=== PATIENT | male | born 1965 | race Caucasian/White ===

== ENCOUNTER → 2017-06-07 16:24 | Outpatient (CLI) | payer BC, SELFPAY ==
[2017-06-07 18:28] LABS: AST(SGOT) 13 U/L (15-37); Alanine Aminotransfer ALT/SGPT 30 U/L (16-61); Anion Gap 8 (5-15); BUN 16 mg/dL (7-18); BUN/Creat Ratio 19.4 RATIO (10-20); Calcium,Total 8.6 mg/dL (8.5-10.1); Chloride 106 mmol/L (98-107); Cholesterol 156 mg/dL (200); Creatinine, Serum 0.83 mg/dL (0.70-1.30); EST Glomerular Filtration Rate 104 mL/min (>60); Est Glom Filt Rate - Afr Amer 126 mL/min (>60); Glucose 79 mg/dL (74-106); High Density Lipoprotein 32 mg/dL; PSA,Total - Annual Screen 0.52 ng/mL (0.00-4.00); Potassium 3.7 mmol/L (3.5-5.1); Sodium Level 140 mmol/L (136-145); Triglycerides 173 mg/dL; Very Low Density Lipoprotein 35 mg/dL (5-40)
== END ==
PROVIDERS: Family Provider Family Medicine; PCP Family Medicine; Visit Provider Family Medicine
DX: Z00.00 Encounter for general adult medical examination without abnormal findings (principal); I10 Essential (primary) hypertension; E78.5 Hyperlipidemia, unspecified; Z12.5 Encounter for screening for malignant neoplasm of prostate
CPT/HCPCS: 36415; 80048; 80061; 84153; 84450; 84460; G0103

== ENCOUNTER → 2017-07-14 16:29 | Outpatient (CLI) | payer BC, SELFPAY ==
--- NOTE | 2017-07-14 | COLBX_PTH ---
PATIENT: MAR CLEMENS LOC: [facility] U#:[id number] AGE/SX: 59/M ROOM: RE07/14/[address]: Dr. Angel Nguyen MD : 1965 BED: DIS: SPEC #: [id number] RECD: 07/14/17 11:27 STATUS: VALENTINA GARCIASteve #: [id number] GERARD: 07/14/17 00:[address]: Angel Nguyen DEPT: SURGICAL PATHOLOGY RECD BY: Shane Wiley ENTERED: 07/20/17 11:28 SP TYPE: COLON BX OTHR DR: Dr. Belia Hernandez MD [facility] Tissues: Sigmoid colon biopsy Procedures: Surgery Specimen Level IV HEADER OPERATION: Colonoscopy with biopsy PRE-OP DIAGNOSIS: Screening / polyp TISSUE SUBMITTED: Sigmoid polyp, rule out adenoma MICROSCOPIC DIAGNOSIS Sigmoid colon polyp, biopsy: Polypoid fragments of benign colonic mucosa. See comment. AM:stephanie 07/21/17 COMMENT Neither hyperplastic nor adenomatous change is seen. Benign appearing lymphoid aggregates are noted. Clinical correlation is suggested. MICROSCOPIC DESCRIPTION Slides are reviewed. GROSS DESCRIPTION Received in fixative is one container labeled with the patient's name and designated sigmoid colon biopsy. The specimen consists of multiple irregular fragments of light davey soft tissue that in aggregate measure 0.6 x 0.3 x 0.1 cm. The specimen is totally submitted in one cassette. / SJ:stephanie 07/17/17 TC:5 CPT: 84134
== END ==
PROVIDERS: Family Provider Family Medicine; PCP Family Medicine; Visit Provider Internal Medicine Gastroenterology
DX: Z12.11 Encounter for screening for malignant neoplasm of colon (principal); K63.5 Polyp of colon
CPT/HCPCS: 88305

== ENCOUNTER → 2018-11-12 | Outpatient (CLI) | payer BC, SELFPAY ==
[2018-11-12 12:53] LABS: Anion Gap 6 (5-15); BUN 11 mg/dL (7-18); BUN/Creat Ratio 12.4 RATIO (10-20); Calcium,Total 8.9 mg/dL (8.5-10.1); Chloride 108 mmol/L (98-107); Cholesterol 159 mg/dL (200); Creatinine, Serum 0.89 mg/dL (0.70-1.30); EST Glomerular Filtration Rate 95 mL/min (>60); Est Glom Filt Rate - Afr Amer 115 mL/min (>60); Glucose 104 mg/dL (74-106); High Density Lipoprotein 38 mg/dL; Potassium 4.1 mmol/L (3.5-5.1); Sodium Level 141 mmol/L (136-145); Triglycerides 139 mg/dL; Very Low Density Lipoprotein 28 mg/dL (5-40)
== END | disposition home or self-care (01) ==
LOC: MFPLAB 09:51
PROVIDERS: Family Provider Family Medicine; PCP Family Medicine; Referring Provider Family Medicine; Visit Provider Family Medicine
DX: I10 Essential (primary) hypertension (principal); S39.012A Strain of muscle, fascia and tendon of lower back, initial encounter
CPT/HCPCS: 36415; 80048; 80061; 82306

== ENCOUNTER → 2019-09-06 | Outpatient (CLI) | payer BC, SELFPAY ==
[2019-09-06 17:49] LABS: AST(SGOT) 13 U/L (15-37); Alanine Aminotransfer ALT/SGPT 38 U/L (16-61); Anion Gap 5 (5-15); BUN 19 mg/dL (7-18); BUN/Creat Ratio 20.2 RATIO (10-20); Calcium,Total 8.8 mg/dL (8.5-10.1); Chloride 106 mmol/L (98-107); Cholesterol 184 mg/dL (200); Creatinine, Serum 0.94 mg/dL (0.70-1.30); EST Glomerular Filtration Rate 89 mL/min (>60); Est Glom Filt Rate - Afr Amer 107 mL/min (>60); Glucose 85 mg/dL (74-106); High Density Lipoprotein 35 mg/dL; PSA,Total - Annual Screen 0.75 ng/mL (0.00-4.00); Potassium 4.4 mmol/L (3.5-5.1); Sodium Level 140 mmol/L (136-145); Triglycerides 226 mg/dL; Very Low Density Lipoprotein 45 mg/dL (5-40)
== END | disposition home or self-care (01) ==
LOC: MFPLAB 15:16
PROVIDERS: PCP Family Medicine; Referring Provider Family Medicine; Visit Provider Family Medicine
DX: Z00.00 Encounter for general adult medical examination without abnormal findings (principal)
CPT/HCPCS: 36415; 80048; 80061; 84153; 84450; 84460; G0103

== ENCOUNTER → 2019-11-29 | Outpatient (CLI) | payer BC, SELFPAY ==
[2019-10-03 13:38] VITALS: BMI 43.1
== END | disposition home or self-care (01) ==
PROVIDERS: PCP Family Medicine; Visit Provider Family Medicine
DX: Z20.828 Contact with and (suspected) exposure to other viral communicable diseases (principal)
CPT/HCPCS: 87635; U0003

== ENCOUNTER 2019-12-27 05:46 | Day surgery (SDC) | payer BC, SELFPAY ==
[2019-10-03 13:38] VITALS: BMI 43.1
--- NOTE | 2019-12-26 20:28 | PCM.HP.BLA ---
History and Physical Date of Admission: 12/27/19 HISTORY OF PRESENT ILLNESS 54 year old man presents with a soft tissue mass right lateral forehead near the hairline that has increased in size over the last several months and causes some discomfort when he wears a cap. He denies fever. He denies trauma. He denies drainage. He denies infection. He denies headaches. He presents at this time for further evaluation and treatment. PAST MEDICAL HISTORY Mass of face Back problem Heart murmur High cholesterol Hives High blood pressure Bone fracture Pneumonia PAST SURGICAL HISTORY tonsillectomy ALLERGIES No Known Allergies MEDICATIONS amlodipine atenolol atorvastatin cholecalciferol (vitamin D3) FAMILY HISTORY Other - Alcoholism, Arthritis, CVA (cerebral vascular accident), Cancer, Epilepsy, Heart disease, High cholesterol, Hypertension, Seizures SOCIAL HISTORY Smoking Status: Former smoker alcohol intake: never substance use type: does not use REVIEW OF SYSTEMS General - Denies fever and weight loss. Has fatigue. Eyes - Denies cataracts and glaucoma. ENT - Denies nasal congestion and sore throat. Endocrine - Denies excessive thirst and urination. Skin - Denies skin cancer. Has enlarging soft tissue mass right lateral forehead near the hairline. Musculoskeletal - Has joint stiffness and back pain. Denies joint pain, weakness of muscles and joints, and arthritis. Neuro - Denies headaches. Cardiovascular - Denies chest pain, fatigue, and shortness of breath with exertion. Psych - Denies anxiety and depression. Respiratory - Denies chronic cough and shortness of breath. Gastrointestinal - Denies nausea, vomiting, diarrhea, and constipation. Hematologic - Denies abnormal bruising and bleeding. Genitourinary - Denies hematuria and urinary frequency. PHYSICAL EXAMINATION General - Alert and Oriented. HEENT - PERRL. EOMI. Throat is clear. On the right lateral forehead near the hairline is a soft tissue mass. It is mobile. Mild discomfort with palpation. Measures 2.5 cm. He elevates his eyebrows symmetrically. No other suspicious lesions noted. Neck - Supple and nontender. No cervical adenopathy. No suspicious lesions noted. Lungs - Clear to auscultation. Heart - Regular rate and rhythm. Abdomen - Soft and nondistended. Extremities - FROM. No axillary adenopathy. Radial pulses are palpable. No suspicious lesions noted. Neuro - CN II-XII grossly intact. Psych - Normal mood and affect. ASSESSMENT 2.5 cm painful soft tissue mass right lateral forehead near the hairline. PLAN Recommend excision of this soft tissue mass right lateral forehead near the hairline and send it to Pathology for analysis to rule out carcinoma. Frequently these forehead masses are submuscular. If so then additional pain medication would be given postoperatively. Surgery would be done under local anesthesia and IV sedation on an outpatient basis. 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 He will check with his schedule when he wants to proceed with surgery. It is tolerable at the present time. He states he may wait until the football season is over before proceeding with surgery since there is heavy lifting of equipment during the season. It is recommended to refrain from heavy lifting for a couple of weeks after surgery. Patient voices understanding. Patient was informed of the risks and complications of the procedure including alternatives to surgery. These were discussed with the patient personally. Patient voices understanding and wishes to proceed. Some of the risks and complications were included in a form from the [employer]. We discussed the current risks associated with COVID-19. While it is understood that there is a community spread of COVID-19, the risk of sarah beth COVID-19 while at [facility] ([facility]) is very low; however, the risk cannot be completely mitigated because of the community spread of the disease. We discussed in detail the risk of exposure to and/or potential harm posed by the COVID-19 virus with having a surgery/procedure at this time versus the risk of delaying the surgery/procedure. It is not possible to know either the risk of delaying the surgery or procedure or chance of getting an infection with perfect accuracy, but a joint decision was made to proceed at this time with the scheduled surgery/procedure as indicated on the consent form. Patient was notified that we will need to comply with any screening or testing [facility] wishes to perform or that surgery may be delayed for any positive results. Discussed with the patient that I was tested for COVID-19 on 08/15/19 which was negative and on 08/29/19 which was negative and on 09/12/19 which was negative and on 09/26/19 which was negative and on 10/10/19 which was negative and on 10/31/19 which was negative and on 11/21/19 which was negative. My testing regimen at this time is to be COVID-19 tested every 2 weeks or so. I was recently tested on 12/26/19. Those results are pending. Procedure Criteria Procedure Type: Elective COVID Risk Discussion: The surgeon/proceduralist and patient have discussed in detail the risk of exposure to and/or potential harm posed by the COVID-19 virus with having a surgery/procedure at this time versus the risk of delaying the surgery/procedure. It is not possible to know either the risk of delaying the surgery or procedure or chance of getting an infection with perfect accuracy, but a joint decision was made between the patient and the surgeon/proceduralist to proceed at this time with the scheduled surgery/procedure as indicated on the consent form.
[2019-12-27 06:21] VITALS: BP 163/85; PULSE 64; RESP 18; TEMP 35.8; O2SAT 100; BMI 43.2
[2019-12-27] MEDS: Lactated Ringers 1,000 ML 100 ML IV (06:32)
--- NOTE | 2019-12-27 07:30 | MASS_PTH ---
PATIENT: MAR CLEMENS [place] [facility] [place][id number] AGE/SX: 54/M ROOM: RE12/27/[address]: Dr. Bronson Carrasquillo MD : 1965 BED: DIS: 12/27/2019 SPEC #: [id number] RECD: 12/27/19 09:33 STATUS: VALENTINA STEPHEN #: [id number] GERARD: 12/27/19 07:[address]: Bronson Carrasquillo DEPT: SURGICAL PATHOLOGY RECD BY: Ariel Milton ENTERED: 12/27/19 10:42 SP TYPE: Mass OTHR DR: Dr. Belia Hernandez MD Tissues: Skin of forehead Procedures: Surgery Specimen Level IV HEADER OPERATION: Excision soft tissue mass lateral forehead PRE-OP DIAGNOSIS: 2.5 cm painful soft tissue mass right lateral forehead near the hairline TISSUE SUBMITTED: Soft tissue mass right lateral forehead near the hairline MICROSCOPIC DIAGNOSIS Soft tissue mass, right lateral forehead, excision: Mature adipose tissue consistent with lipoma. AM:stephanie 12/30/19 MICROSCOPIC DESCRIPTION Slides are reviewed. GROSS DESCRIPTION Received in fixative is one container labeled with the patient's name and designated soft tissue mass right lateral forehead near the hairline. The specimen consists of a piece of adipose tissue measuring 2 x 1 x 0.6 cm. The specimen is bisected and submitted entirely in one cassette. / SJ:stephanie 12/27/19 TC:1 CPT: 46442
[2019-12-27] MEDS: Mupirocin Ointment 22gm Tube 1 APPLIC (08:00)
--- NOTE | 2019-12-27 08:06 | OP.PCM_ITS ---
Report of Operation Date of Procedure: 12/27/19 Pre-Operative Diagnosis: 2.5 cm painful soft tissue mass right lateral forehead near the hairline. Post-Operative Diagnosis: 2.5 cm painful submuscular soft tissue mass right lateral forehead near the hairline. Surgery/Procedure Performed:: Excision 2.5 cm painful submuscular soft tissue mass right lateral forehead near the hairline with 2 cm complex closure repair. Description of Surgical Findings:: 54 year old man presents with a soft tissue mass right lateral forehead near the hairline that has increased in size over the last several months and causes some discomfort when he wears a cap. He denies fever. He denies trauma. He denies drainage. He denies infection. He denies headaches. Patient was informed of the risks and complications of the procedure including alternatives to surgery. These were discussed with the patient personally. Patient voices understanding and wishes to proceed. Some of the risks and complications were included in a form from the [employer]. 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 Specimen's removed: Painful submuscular soft tissue mass right lateral forehead near the hairline to Pathology. Drains: None. Estimated Blood Loss (mL): 2 ml. Description of Procedure: Patient was taken to OR in supine position and was given IV sedation. The right forehead was prepped and draped in the usual fashion. SCD's were placed for DVT prophylaxis. Perioperative antibiotics were given intravenously. For the procedure, I wore an N95 mask and wore proper eyewear protection. The soft tissue mass right lateral forehead near the hairline was infiltrated with xylocaine and epinephrine. After waiting 5 minutes for the anesthetic to take effect, a horizontal incision was made over the mass. Dissection was carried into the subcutaneous tissue down toward the frontalis muscle. There was a small bulge in the muscle as the soft tissue mass was in the submuscular position. The muscle fibers were and the soft tissue mass was sharply dissected free. It was well encapsulated. It extended down to the periosteum. Clinically, the soft tissue mass appeared to be a lipoma. The wound was irrigated with saline. Hemostasis was obtained with electrocautery. I then proceeded with a complex closure by first approximating the muscle repair with 5-0 Monocryl figure of eight interrupted sutures. The deep dermis and subcutaneous tissue was approximated with 5-0 Monocryl interrupted sutures. The skin was approximated with 6-0 Prolene simple interrupted sutures. Steri-strips were applied followed by antibiotic ointment and a 2x2 compression gauze. The length of the complex closure repair was 2 cm. Patient tolerated the procedure well and was sent to PACU in satisfactory condition. Patient will be sent home on antibiotics and pain medication. He will keep his head elevated during the initial postoperative period. Patient will followup in a week for a wound check and for discussion of the pathology report and for removal of the sutures. Grafts/Implants Used: None. - Complications None. - Admit VTE Documentation VTE Present on Admission: No VTE Mechan Device Prophylaxis: SCD's VTE Pharm Prophylaxis ordered?: No Surgery Charges CPT - 95267 ICD-10 - R22.0, R20.8 98849 R22.0, R20.8
[2019-12-27 08:09] VITALS: BP 139/81; BP 163/85; PULSE 67; RESP 16; TEMP 36.6; O2SAT 95
--- NOTE | 2019-12-27 08:13 | DCINST_ITS ---
You will use the following diet at home:: No restrictions Discharge Activity: May not drive while taking narcotic pain medications., May Shower - in two days., - - no heavy lifting. keep head elevated. May shower in (days): 2 May resume sexual activity in: No Restrictions Ice area for (Minutes): 5 - as needed for facial swelling. Weight Bearing Status: Weight bearing as tolerated Lifting Restrictions: 20 lbs. Keep extremity elevated above heart level: - - elevate head. Call your doctor if your incision/area has: Continuous Slow Oozing, Sudden Increased Bleeding, Increased Pain/ Swelling, Increased Redness, Foul Smelling Discharge, Swelling at the incision site Call your doctor if you observe: Fever of 101 or Higher, Coldness, Increased Pain, Shortness of breath, Chest pain, Calf discomfort, Uncontrolled pain Suture Line Care: - - after operative dressing is removed in two days, apply antibiotic ointment to suture line daily. Remove Dressing in (days):: 2 - apply antibiotic ointment to suture line daily. Cleanse incision/area with: - - may get iincision wet in the shower in two days. Allergies/Adverse Reactions: Allergies No Known Allergies Allergy (Unverified 12/27/19 06:17) Medications to take at Discharge amlodipine 5 mg tablet 5 mg PO QHS 09/26/19 atenolol 25 mg tablet 25 mg PO QHS 09/26/19 atorvastatin 20 mg tablet 20 mg PO QHS 09/26/19 cholecalciferol (vitamin D3) 50 mcg (2,000 unit) capsule 50 mcg PO QHS 09/26/19 Famotidine [Pepcid AC] 20 mg PO PRN PRN 12/19/19 Clindamycin HCl [Cleocin] 300 mg PO TID #12 cap 12/27/19 Lactobacillus Acidophilus/Fos [Acidophilus Probiotic Tablet] 1 ea PO BID #20 tab 12/27/19 Oxycodone HCl/Acetaminophen [Percocet 5/325] 1 tablet PO Q6H PRN PRN 5 Days #20 tablet 12/27/19 The following prescriptions were given: Lactobacillus Acidophilus/Fos [Acidophilus Probiotic Tablet] 1 ea PO BID #20 tab Transmission Status: Pending to [facility] Clindamycin HCl [Cleocin] 300 mg PO TID #12 cap Transmission Status: Pending to [facility] Oxycodone HCl/Acetaminophen [Percocet 5/325] 1 tablet PO Q6H PRN PRN 5 Days #20 tablet PRN Reason: Pain Score 6-10 Transmission Status: Sent to [facility] Primary Care Physician: Belia Hernandez MD [Primary Care Provider] - Test Results: Test results from this visit will be discussed in further detail at your follow- up appointment, if applicable. Please Follow Up With: Bronson Carrasquillo MD When: one week. call [phone] for appt. Proposed Discharge Date: 12/27/19
[2019-12-27 08:15] VITALS: BP 127/77; BP 163/85; PULSE 67; RESP 16; O2SAT 96
[2019-12-27 08:20] VITALS: BP 129/81; BP 163/85; PULSE 64; RESP 16; O2SAT 95
[2019-12-27 08:24] VITALS: BP 121/75; BP 163/85; PULSE 64; RESP 16; TEMP 36.6; O2SAT 94
[2019-12-27 08:58] VITALS: BP 163/85
== END 2019-12-27 08:59 | disposition home or self-care (01) ==
LOC: SDC 05:46 → AC 05:46
PROVIDERS: PCP Family Medicine; Referring Provider Surgery; Visit Provider Surgery
PROC: (CPT 11443; principal; 2019-12-27 07:15)
DX: R22.0 Localized swelling, mass and lump, head (principal); R52 Pain, unspecified; I10 Essential (primary) hypertension; E78.00 Pure hypercholesterolemia, unspecified; G47.30 Sleep apnea, unspecified; Z79.899 Other long term (current) drug therapy; Z87.891 Personal history of nicotine dependence
CPT/HCPCS: 00300; 11443; 12051; 87426; 88305; C9803; J7120; J2405

== ENCOUNTER → 2020-09-15 15:01 | Outpatient (CLI) | payer BC, SELFPAY ==
[2020-09-15 18:25] LABS: Microalbumin,Random Urine 13.4 mg/L (NO RANGE EST.); Microalbumin:Creatinine Ratio 11.6 mg/g CRE (<30 mg/g CRE)
[2020-09-15 18:37] LABS: AST(SGOT) 21 U/L (15-37); Alanine Aminotransfer ALT/SGPT 52 U/L (16-61); Anion Gap 8 (5-15); BUN 13 mg/dL (7-18); BUN/Creat Ratio 14.7 RATIO (10-20); Calcium,Total 9.1 mg/dL (8.5-10.1); Chloride 105 mmol/L (98-107); Cholesterol 152 mg/dL (200); Creatinine, Serum 0.89 mg/dL (0.70-1.30); EST Glomerular Filtration Rate 95 mL/min (>60); Est Glom Filt Rate - Afr Amer 115 mL/min (>60); Glucose 137 mg/dL (74-106); High Density Lipoprotein 32 mg/dL; Potassium 3.6 mmol/L (3.5-5.1); Sodium Level 139 mmol/L (136-145); Triglycerides 215 mg/dL; Very Low Density Lipoprotein 43 mg/dL (5-40)
== END ==
PROVIDERS: PCP Family Medicine; Visit Provider Family Medicine
DX: I10 Essential (primary) hypertension (principal); E78.00 Pure hypercholesterolemia, unspecified
CPT/HCPCS: 36415; 80048; 80061; 82043; 82570; 84450; 84460

== ENCOUNTER 2021-03-22 16:29 | Outpatient (CLI) | payer BC, SELFPAY ==
[2021-03-22 18:32] LABS: AST(SGOT) 22 U/L (15-37); Alanine Aminotransfer ALT/SGPT 55 U/L (16-61); Anion Gap 7 (5-15); BUN 14 mg/dL (7-18); Chloride 103 mmol/L (98-107); Cholesterol 159 mg/dL (200); Creatinine, Serum 0.78 mg/dL (0.70-1.30); EST Glomerular Filtration Rate 110 mL/min (>60); Est Glom Filt Rate - Afr Amer 133 mL/min (>60); Glucose 152 mg/dL (74-106); High Density Lipoprotein 32 mg/dL; Potassium 3.7 mmol/L (3.5-5.1); Sodium Level 137 mmol/L (136-145); Triglycerides 222 mg/dL; Very Low Density Lipoprotein 44 mg/dL (5-40)
== END 2021-03-22 23:59 | disposition home or self-care (01) ==
LOC: MFPLAB 16:30
PROVIDERS: PCP Family Medicine; Visit Provider Family Medicine
DX: Z00.00 Encounter for general adult medical examination without abnormal findings (principal); E78.00 Pure hypercholesterolemia, unspecified; I10 Essential (primary) hypertension
CPT/HCPCS: 36415; 80048; 80061; 84153; 84450; 84460; G0103

== ENCOUNTER 2021-06-12 14:27 | Emergency (ER) | payer BC, SELFPAY ==
[2021-06-12 14:28] VITALS: BP 165/95; PULSE 63; RESP 15; TEMP 36.3; O2SAT 99; BMI 43.7
--- NOTE | 2021-06-12 14:40 | EDS_ITS ---
HPI <MAGNUS Jacobsen - Last Filed: 06/12/21 15:12> History of Present Illness Chief Complaint: Laceration Narrative Narrative: 55-year-old [id number]-vgfz-yemhormd male presents with right finger lacerations. He was cleaning a fillet knife and excellently the first, second, and third fingers on his right hand. The cut on the finger pad of the index finger is the deepest with a small amount of continued bleeding. He states the very tip of the index finger feels numb. No weakness. Tetanus up-to-date within the last 5 years PFS <MAGNUS Jacobsen - Last Filed: 06/12/21 15:12> [facility] Medical History Allergies Back problem Bone fracture Heart murmur High blood pressure High cholesterol Hives Lipoma of face Mass of face Pneumonia Home Medications amlodipine 5 mg tablet 5 mg PO QHS 09/26/19 [History Last Taken Unknown] atenolol 25 mg tablet 25 mg PO QHS 09/26/19 [History Last Taken Unknown] atorvastatin 20 mg tablet 20 mg PO QHS 09/26/19 [History Last Taken Unknown] cholecalciferol (vitamin D3) 50 mcg (2,000 unit) capsule 50 mcg PO QHS 09/26/19 [History Last Taken Unknown] famotidine 20 mg PO PRN PRN 12/19/19 [History Last Taken 12/27/19 04:30] Lactobac acidoph-fructooligos 1 ea PO BID #20 tab 12/27/19 [Rx Last Taken Unknown] clindamycin HCl 300 mg PO TID #12 cap 12/27/19 [Rx Last Taken Unknown] Allergy/AdvReac Type Severity Reaction Status Date / Time No Known Allergies Allergy Verified 06/12/21 14:28 Family History Other Alcoholism Arthritis CVA (cerebral vascular accident) Cancer Epilepsy Heart disease High cholesterol Hypertension Seizures Surgical History History of excision of mass History of tonsillectomy Social History (Updated 01/04/20 @ 16:58 by Yulissa Purdy ACCESS SERVICE REPRESENTATIVE, ACCESS SERVICE REPRESENTATIVE-C) Smoking Status: Former smoker alcohol intake: never substance use type: does not use additional social history: DOES TAKE ASPIRIN NEEDED DOES TAKE IBUPROFEN NEEDED ROS <MAGNUS Jacobsen - Last Filed: 06/12/21 15:12> ROS ED ROS Narrative Constitutional: Negative for fever, chills, malaise. Eyes: Negative for visual change. ENT: Negative for sore throat. CVS: Negative for palpitations, chest pain, syncope. Respiratory: Negative for shortness of breath, cough. GI: Negative for abdominal pain, nausea, vomiting. : Negative for dysuria, hematuria or frequency. Neuro: Negative for motor/sensory dysfunction. Skin: Positive for wound. Negative for rash, abscess. Musc: Negative for joint pain, swelling. Heme: Negative for easy bruising, bleeding, lymphadenopathy. EXAM <MAGNUS Jacobsen - Last Filed: 06/12/21 15:12> Physical Exam Narrative Exam Narrative: CONST: Patient sitting in no acute distress. EYES: Normal inspection. ENT: Normal inspection, moist mucous membranes. NECK: Normal inspection. RESP: No respiratory distress, CTAB. CVS: Regular rate and rhythm, no murmur, no gallop. SKIN: Right thumb and middle finger have linear 1 cm superficial lacerations on the distal volar surface. These do not require closure. On the distal index finger there is a circumferential skin flap. The skin is thin and pale. All nails are normal with no laceration or subungual hematoma. EXTREMITIES: Normal appearance, full range of motion of right hand and digits, motor and sensory function intact in median ulnar and radial distributions. Brisk capillary refill in all 5 digits. NEURO: Oriented x4. PSYCH: Normal affect. Const Vital Signs: 06/12/21 14:28 Temperature 97.3 F L Temperature Source Temporal Pulse Rate 63 Respiratory Rate 15 Blood Pressure 165/95 H Blood Pressure Mean 118 Pulse Ox 99 Oxygen Delivery Method Room Air <Dr. Celsa Tam MD - Last Filed: 06/12/21 15:06> Physical Exam Const Vital Signs: 06/12/21 14:28 Temperature 97.3 F L Temperature Source Temporal Pulse Rate 63 Respiratory Rate 15 Blood Pressure 165/95 H Blood Pressure Mean 118 Pulse Ox 99 Oxygen Delivery Method Room Air MDM <MAGNUS Jacobsen - Last Filed: 06/12/21 15:12> MDM MDM Narrative Medical decision making narrative: Right hand lacerations were thoroughly cleansed with soap and water. The linear superficial lacerations on the thumb and middle finger were glued shut. The flap laceration on the index finger is not really amenable to sutures as the flap is too thin. It was glued and a bulky dressing applied. His tetanus is up-to-date. Patient counseled on wound care and discharged in stable condition. 1. Multiple right finger lacerations?skin glue <Dr. Celsa Tam MD - Last Filed: 06/12/21 15:06> [facility] Treatment and Re-Evaluation Narrative: Patient seen and evaluated with RUDOLPH. I personally interviewed and examined the patient. I was involved in all aspects of patient's orders, inter pretation of results, and treatment. Patient presents secondary to lacerations of the right thumb, index finger, middle finger. He is left-hand dominant. Tetanus shot is already updated. Patient sitting up in bed no acute distress. Speaking full sentences. Heart regular rate and rhythm. Normal respiratory rate. Right upper extremity examination reveals linear, very superficial lacerations to the right thumb and long finger distally. There is a nearly circumferential flap laceration to the distal aspect of the right index finger. The skin here is dusky and pale. Full range of motion with normal musculoskeletal exam. Right hand wounds are soaked and cleansed. The superficial lacerations on the thumb and long finger are sealed with Dermabond. I discussed with the patient that the dusky flap laceration on the distal aspect of the index finger will likely not survive. There does not appear to be good blood supply to this area. I do not believe that suturing versus glue will change the ultimate outcome. Wound will be glued and bulky dressing applied over the end of the finger. He was advised that the skin likely will dry and slough off. Granulation tissue will then fill in. He voices understanding and agreement. Discharge Plan Triage Chief Complaint: Laceration ED Provider: Margot Raymond Dx/Rx/DC Orders Prescriptions: No Action atenolol 25 mg tablet 25 mg PO QHS RF: 0 atorvastatin 20 mg tablet 20 mg PO QHS RF: 0 amlodipine 5 mg tablet 5 mg PO QHS RF: 0 cholecalciferol (vitamin D3) [Vitamin D3] 50 mcg (2,000 unit) capsule 50 mcg PO QHS RF: 0 famotidine 20 MG tablet 20 mg PO PRN PRN (Reason: Indigestion) RF: 0 clindamycin HCl 300 MG capsule 300 mg PO TID Qty: 12 RF: 0 Lactobac acidoph-fructooligos 1 EACH tablet 1 ea PO BID Qty: 20 RF: 0 Primary Care Provider: Belia Hernandez
== END 2021-06-12 15:28 | disposition home or self-care (01) ==
PROVIDERS: Emergency Provider Physician Assistant; PCP Family Medicine; Visit Provider Physician Assistant
DX: S61.011A Laceration without foreign body of right thumb without damage to nail, initial encounter (principal); Z87.891 Personal history of nicotine dependence; S61.210A Laceration without foreign body of right index finger without damage to nail, initial encounter; S61.212A Laceration without foreign body of right middle finger without damage to nail, initial encounter; W26.0XXA Contact with knife, initial encounter; Y93.G1 Activity, food preparation and clean up; Y99.9 Unspecified external cause status; Y92.9 Unspecified place or not applicable
CPT/HCPCS: 12001; 99282

== ENCOUNTER → 2022-03-11 | Outpatient (CLI) | payer BC, SELFPAY ==
[2022-03-11 12:49] LABS: Microalbumin,Random Urine 12.6 mg/L (NO RANGE EST.)
[2022-03-11 12:50] LABS: AST(SGOT) 21 U/L (15-37); Alanine Aminotransfer ALT/SGPT 40 U/L (16-61); Alkaline Phosphatase 74 U/L (45-117); Anion Gap 8 (5-15); BUN 14 mg/dL (7-18); BUN/Creat Ratio 16.4 RATIO (10-20); Bilirubin, Direct 0.16 mg/dL (0.00-0.30); Calcium,Total 9.1 mg/dL (8.5-10.1); Chloride 108 mmol/L (98-107); Cholesterol 163 mg/dL (200); Creatinine, Serum 0.86 mg/dL (0.70-1.30); EST Glomerular Filtration Rate 98 mL/min (>60); Est Glom Filt Rate - Afr Amer 119 mL/min (>60); Globulin 2.6 g/dL (2.2-4.2); Glucose 125 mg/dL (74-106); High Density Lipoprotein 43 mg/dL; Potassium 4.1 mmol/L (3.5-5.1); Protein, Total 6.6 g/dL (6.4-8.2); Sodium Level 140 mmol/L (136-145); Triglycerides 116 mg/dL; Very Low Density Lipoprotein 23 mg/dL (5-40)
== END | disposition home or self-care (01) ==
LOC: MFPLAB 09:49
PROVIDERS: PCP Family Medicine; Referring Provider Family Medicine; Visit Provider Family Medicine
DX: E11.9 Type 2 diabetes mellitus without complications (principal)
CPT/HCPCS: 36415; 80048; 80061; 80076; 82043; 82570

== ENCOUNTER → 2023-07-12 | Outpatient (CLI) | payer BC, SELFPAY ==
[2023-07-12 12:35] LABS: Microalbumin,Random Urine 23.1 mg/L (NO RANGE EST.); Microalbumin:Creatinine Ratio 10.6 mg/g CRE (<30 mg/g CRE)
[2023-07-12 13:08] LABS: ALB/GLOB Ratio 1.3 RATIO (0.9-2.4); AST(SGOT) 27 U/L (15-37); Alanine Aminotransfer ALT/SGPT 48 U/L (16-61); Albumin, Serum 3.8 g/dL (3.2-5.0); Alkaline Phosphatase 76 U/L (45-117); Anion Gap 9 (5-15); BUN 14 mg/dL (7-18); BUN/Creat Ratio 15.3 RATIO (10-20); Calcium,Total 8.8 mg/dL (8.5-10.1); Chloride 106 mmol/L (98-107); Cholesterol 169 mg/dL (200); Creatinine, Serum 0.91 mg/dL (0.70-1.30); EST Glomerular Filtration Rate 91 mL/min (>60); Est Glom Filt Rate - Afr Amer 110 mL/min (>60); Glucose 179 mg/dL (74-106); High Density Lipoprotein 37 mg/dL; PSA,Total- Diagnostic 1.17 ng/mL (0.0-4.0); Potassium 4.4 mmol/L (3.5-5.1); Protein, Total 6.8 g/dL (6.4-8.2); Sodium Level 137 mmol/L (136-145); Thyroid Stim Hormone (TSH) 1.39 uIU/mL (0.358-3.74); Triglycerides 214 mg/dL; Very Low Density Lipoprotein 43 mg/dL (5-40)
== END | disposition home or self-care (01) ==
LOC: MFPLAB 10:10
PROVIDERS: PCP Family Medicine; Visit Provider Family Medicine
DX: Z00.00 Encounter for general adult medical examination without abnormal findings (principal); E11.69 Type 2 diabetes mellitus with other specified complication
CPT/HCPCS: 36415; 80053; 80061; 82043; 82570; 83036; 84153; 84403; 84443

== ENCOUNTER → 2024-04-29 | Outpatient (CLI) | payer BC, SELFPAY ==
[2024-04-29 14:09] LABS: AST(SGOT) 24 U/L (<=37); Alanine Aminotransfer ALT/SGPT 42 U/L (<=46); Albumin, Serum 4.4 g/dL (3.5-5.0); Alkaline Phosphatase 74 U/L (40-129); Anion Gap 13 (5-15); BUN 15 mg/dL (4-19); BUN/Creat Ratio 17.9 RATIO (10-20); Bilirubin, Direct 0.24 mg/dL (0.00-0.30); Calcium,Total 9.3 mg/dL (7.6-11.0); Carbon Dioxide 23.2 mmol/L (21.0-32.0); Chloride 105 mmol/L (98-108); Cholesterol 182 mg/dL (<=200); Creatinine, Serum 0.84 mg/dL (0.70-1.20); EST Glomerular Filtration Rate 101 (>60); Globulin 2.4 g/dL (2.2-4.2); Glucose 142 mg/dL (70-99); High Density Lipoprotein 41 mg/dL; Low Density Lipoprotein Calc. 109 mg/dL; Potassium 4.5 mmol/L (3.3-5.1); Protein, Total 6.8 g/dL (5.9-8.4); Sodium Level 141 mmol/L (133-145); Total Bilirubin 0.63 mg/dL (0.00-1.30); Triglycerides 158 mg/dL; Very Low Density Lipoprotein 32 mg/dL (5-40); cholesterol:hdl ratio screen 4.41
[2024-04-29 16:18] LABS: Protein, Urine (Random) < 6.0 mg/dL (0.0-12.0); Protein:Creat Ratio UNABLE TO CALCULATE mg/g CRE (0-200)
== END | disposition home or self-care (01) ==
LOC: MFPLAB 10:06
PROVIDERS: PCP Family Medicine; Referring Provider Family Medicine; Visit Provider Family Medicine
DX: E11.69 Type 2 diabetes mellitus with other specified complication (principal); E78.5 Hyperlipidemia, unspecified
CPT/HCPCS: 36415; 80048; 80061; 80076; 82570; 84156; 84443

== ENCOUNTER → 2024-12-13 | Outpatient (CLI) | payer BC, SELFPAY ==
[2024-12-13 17:50] LABS: Hematocrit 48.3 % (40-54); Hemoglobin 16.0 g/dL (13.0-16.5); Immature Granulocytes Count 0.010 X10^3/uL (0.0-0.0); Mean Corp Hgb Conc 33.1 g/dL (32-36); Mean Corpuscular Volume 86.7 fL (80-94); Mean Platelet Vol. 10.5 fl (6.2-12.0); NRBC Flagged by Analyzer 0 % (0-5); Platelet Count 185 K/mm3 (150-450); RBC Distribution Width CV 12.7 % (11.6-14.6); RBC Distribution Width SD 40.3 fl (35.1-43.9); Red Blood Count 5.57 M/mm3 (4.6-6.2); White Blood Count 5.5 K/mm3 (4.4-11.0)
[2024-12-13 18:02] LABS: AST(SGOT) 18 U/L (<=37); Alanine Aminotransfer ALT/SGPT 25 U/L (<=46); Albumin, Serum 4.5 g/dL (3.5-5.0); Alkaline Phosphatase 80 U/L (40-129); Anion Gap 12 (5-15); BUN 15 mg/dL (4-19); BUN/Creat Ratio 17.8 RATIO (10-20); Calcium,Total 9.6 mg/dL (7.6-11.0); Carbon Dioxide 21.5 mmol/L (21.0-32.0); Chloride 106 mmol/L (98-108); Cholesterol 166 mg/dL (<=200); Globulin 2.5 g/dL (2.2-4.2); Glucose 171 mg/dL (70-99); Low Density Lipoprotein Calc. 86 mg/dL; Potassium 4.2 mmol/L (3.3-5.1); Triglycerides 281 mg/dL; Very Low Density Lipoprotein 56 mg/dL (5-40); cholesterol:hdl ratio screen 5.02
[2024-12-13 18:05] LABS: Creatinine, Urine (random) 57.30 mg/dL (39.00-259.00); Microalbumin,Random Urine < 12.0 mg/L (<20 mg/L)
== END | disposition home or self-care (01) ==
LOC: MFPLAB 15:19
PROVIDERS: PCP Family Medicine; Visit Provider Family Medicine
DX: E11.9 Type 2 diabetes mellitus without complications (principal); M18.11 Unilateral primary osteoarthritis of first carpometacarpal joint, right hand
CPT/HCPCS: 36415; 80053; 80061; 82043; 82570; 85025